=== PATIENT | male | born 2000 | race Caucasian/White ===

== ENCOUNTER 2024-03-11 20:53 | Emergency (ER) | payer OTHER ==
[~2024-03-11] VITALS: Ht 182.9 cm; Wt 97.7 kg
[2024-03-11 20:57] VITALS: TEMP 98
[2024-03-11] MEDS ORDERED: LR 1,000 ML IV SCH (21:00)
[2024-03-11] MEDS ORDERED: Iohexol 300 - 100 ML VIAL IV ONE (21:32)
[2024-03-11 21:33] LABS: INR 1.2 (0.8-3.0); PROTHROMBIN TIME 12.7 SECONDS (9.7-12.8)
[2024-03-11] MEDS ORDERED: NS 50 ML IV SCH (21:33)
[2024-03-11 21:34] LABS: BASO # 0.1 K/mm3 (0.0-0.2); BASO % 0.4 % (0.0-2.0); EOS % 0.3 % (0.0-4.0); GRAN # 5.2 K/mm3 (1.4-6.5); GRAN % 44.5 % (42.2-75.2); HEMATOCRIT 44.8 % (42.0-52.0); HEMOGLOBIN 14.8 g/dl (13.5-18.0); LYMPH # 5.5 K/mm3 (1.2-3.4); LYMPH % 46.4 % (20.0-51.0); MEAN CELL VOLUME 92 fl (80.0-100.0); MEAN CORPUSCULAR HEMOGLOBIN 30 pg (27-31); MEAN CORPUSCULAR HGB CONC 33 g/dl (33.0-37.0); MEAN PLATELET VOLUME 10.1 fl (7.4-10.4); MONO # 0.9 K/mm3 (0.1-0.6); MONO % 7.6 % (1.7-9.3); PLATELET COUNT 347 K/mm3 (130-400); RED BLOOD COUNT 4.88 M/mm3 (4.20-5.60); REDCELL DISTRIBUTION WIDTH-CV 12.4 % (11.5-14.5)
[2024-03-11] MEDS ORDERED: Lido/EPI/Tetrac Gel 3 ML SYRINGE TOP ONE (21:58)
[2024-03-11 22:00] LABS: ALBUMIN 4.1 g/dL (3.5-5.0); BILIRUBIN,TOTAL 0.6 mg/dL (0.2-1.2); CALCIUM 8.5 mg/dL (8.4-10.2); CREATININE, serum 1.12 mg/dL (0.72-1.25); TOTAL PROTEIN 6.6 g/dl (6.2-8.1)
[2024-03-11 23:33] LABS: URINE APPEARANCE CLEAR (CLEAR/HAZY); URINE BLOOD 2+ (NEGATIVE); URINE COLOR YELLOW (YELLOW); URINE GLUCOSE NEGATIVE (NEGATIVE); URINE KETONE NEGATIVE (NEGATIVE); URINE NITRATE NEGATIVE (NEGATIVE); URINE PROTEIN(semi-quant) NEGATIVE (NEGATIVE); URINE UROBILINOGEN 0.2 E.U/dL (0.2-1.0)
[2024-03-11 23:36] LABS: COLLECTION METHOD CLEAN CATCH
[2024-03-12] MEDS ORDERED: Lido/EPI/Tetrac Gel 3 ML SYRINGE TOP ONE (01:00)
[2024-03-12] MEDS ORDERED: CEPHALEXIN500 M1 PO (09:19)
[2024-03-12] MEDS ORDERED: CRUTCHES MC (09:22)
[2024-03-12] MEDS ORDERED: Cephalexin 500 MG CAP PO ONE (09:30)
[2024-03-12 09:50] VITALS: BP 111/48; PULSE 74
== END 2024-03-12 09:57 | disposition home or self-care (01) ==
LOC: COL.ER 20:53 → EDBD 20:55 → COL.ER 20:55
PROVIDERS: Family Medicine
DX: S01.511A Laceration without foreign body of lip, initial encounter (principal); S81.811A Laceration without foreign body, right lower leg, initial encounter; S30.1XXA Contusion of abdominal wall, initial encounter; F10.129 Alcohol abuse with intoxication, unspecified; Y90.7 Blood alcohol level of 200-239 mg/100 ml; V89.2XXA Person injured in unspecified motor-vehicle accident, traffic, initial encounter; Y92.410 Unspecified street and highway as the place of occurrence of the external cause
CPT/HCPCS: J7120; Q9967